=== PATIENT | female | born 1970 | race Caucasian/White ===

== ENCOUNTER 2021-06-19 21:55 | Emergency (ER) | payer OTHER ==
[~2021-06-19 21:55] MED LIST: BACTRIM DS TAB1 EACH PO
[2021-06-19 22:42] LABS: BASOPHIL 0.3 % (0-2); EOSINOPHIL 0 % (0-5); HCT 38.6 % (37.0-47.0); HGB 12.6 g/dl (12.5-16.0); LYMPHOCYTE 25.7 % (15-48); MCH 28.6 pg (25.0-31.0); MCHC 32.6 g/dL (32.0-36.0); MCV 87.7 fL (78.0-100.0); NEUTROPHIL 67.7 % (41-80); NRBC 0; PLT 166 K/uL (150-400)
[2021-06-19 22:47] LABS: INR 1.01 (0.9-1.2); PROTHROMBIN TIME 12.7 SECONDS (11.8-13.4); PTT 29.8 SECONDS (24.4-34.7)
[2021-06-19 22:49] LABS: D-DIMER 0.6 ug/mLFEU (0.00-0.41)
[2021-06-19 23:02] LABS: ALBUMIN 3.5 g/dL (3.4-5.0); BILIRUBIN - TOTAL 0.2 mg/dL (0.2-1.0); BUN/CREAT RATIO (CALC) 12.5 RATIO; CREATININE 0.64 mg/dL (0.51-0.95); GLOBULIN (CALCULATION) 4.1 g/dL; POTASSIUM 3.7 mmol/L (3.5-5.1); TOTAL PROTEIN 7.6 g/dL (6.4-8.2)
[2021-06-19 23:03] LABS: LACTIC ACID 1.3 mmol/L (0.4-1.9)
[2021-06-20] MEDS ORDERED: HYCODAN5 ML PO (00:17)
[2021-06-20] MEDS ORDERED: NAPROXEN500 MG PO (00:17)
[2021-06-20] MEDS ORDERED: TESSALON PERLE100 M1 PO (00:17)
[2021-06-20] MEDS ORDERED: MEDROL 4MG DOSEP4 MG PO (00:17)
== END 2021-06-20 00:40 | disposition home or self-care (01) ==
LOC: FER 21:55
PROVIDERS: Emergency Medicine
DX: U07.1 COVID-19 (principal)
CPT/HCPCS: 36415; 71045; 80053; 83605; 83880; 85025; 85379; 85610; 85730; 87040